=== PATIENT | male | born 1990 | race Native Hawaiian/Other Pacific Islander ===

== ENCOUNTER 2017-03-03 14:09 | Outpatient (CLI) | payer OTHER | END 2017-03-03 19:10 | disposition home or self-care (01) | LOC: RAD 14:09 | DX: M79.671 Pain in right foot (principal); M54.5 Low back pain ==

== ENCOUNTER 2017-04-06 17:08 | Emergency (ER) | payer OTHER ==
[~2017-04-06] VITALS: Ht 160 cm; Wt 67.6 kg
[2017-04-06 18:52] VITALS: BP 135/78; TEMP 97.9
== END 2017-04-06 18:52 | disposition home or self-care (01) ==
LOC: ED 17:08
DX: S40.012A Contusion of left shoulder, initial encounter (principal); S46.812A Strain of other muscles, fascia and tendons at shoulder and upper arm level, left arm, initial encounter; W01.0XXA Fall on same level from slipping, tripping and stumbling without subsequent striking against object, initial encounter; Y93.89 Activity, other specified; Y92.098 Other place in other non-institutional residence as the place of occurrence of the external cause
CPT/HCPCS: 99282

== ENCOUNTER 2017-04-08 09:27 | Outpatient (CLI) | payer OTHER | END 2017-04-08 11:00 | disposition home or self-care (01) | LOC: MRI 09:27 | DX: M54.5 Low back pain (principal) ==

== ENCOUNTER 2018-11-22 20:06 | Emergency (ER) | payer OTHER ==
[~2018-11-22] VITALS: Ht 160 cm; Wt 68.5 kg
[2018-11-22 21:10] VITALS: BP 130/84; TEMP 98.1
== END 2018-11-22 21:10 | disposition home or self-care (01) ==
LOC: ED 20:06
DX: M54.89 Other dorsalgia (principal); G89.29 Other chronic pain; X50.0XXA Overexertion from strenuous movement or load, initial encounter; Y92.89 Other specified places as the place of occurrence of the external cause
CPT/HCPCS: 99281